=== PATIENT | female | born 1960 | race Caucasian/White ===

== ENCOUNTER 2017-02-04 12:22 | Inpatient (IN) | payer OTHER ==
[~2017-02-04] VITALS: Ht 160 cm; Wt 68.9 kg
[2017-02-04 12:24] VITALS: BP 162/96; PULSE 107; RESP 13; TEMP 98.5; O2SAT 97
[2017-02-04] MEDS ORDERED: ONDA8TAB7 PO (12:54)
[2017-02-04] MEDS ORDERED: ZOLP10TA3 PO (12:54)
[2017-02-04] MEDS ORDERED: NAPR500T2 PO (12:54)
[2017-02-04] MEDS ORDERED: LISI2.5T3 PO (12:54)
[2017-02-04] MEDS ORDERED: OMEP20TA93 PO (12:54)
[2017-02-04] MEDS ORDERED: HYDR-3583 PO (12:54)
[2017-02-04] MEDS ORDERED: ALPR2TAB3 PO (12:54)
[2017-02-04] MEDS ORDERED: VITA1000 PO (12:54)
[2017-02-04] MEDS ORDERED: ATOR20TA15 PO (12:54)
[2017-02-04] MEDS ORDERED: BACL10TA PO (12:54)
[2017-02-04] MEDS ORDERED: VIIB40TA PO (12:54)
[2017-02-04] MEDS ORDERED: METF500T PO (12:55)
[2017-02-04] MEDS ORDERED: CALC1TAB87 PO (12:55)
--- NOTE | 2017-02-04 12:56 | PD ---
HPI Chief Complaint: Psychiatric Symptoms Time Seen by Provider: 12:28 Travel History International Travel<30 days: No Contact w/Intl Traveler<30days: No Traveled to known affect area: No History of Present Illness HPI The patient is a 56-year-old female who presents to the emergency department for psychiatric evaluation. The patient was evaluated by her psychiatrist earlier today, Dr. Pozo, was sent to the emergency department for evaluation by psychiatry for increasing psychiatric symptoms. The patient has a history of depression, PTSD, panic attacks, borderline personality disorder. The patient states her cousin has been living with her for the last year, she is tried to evict her cousin from the house, however, cousin did pay a small amount and the police cannot force the cousin to leave. The patient denies any alcohol or illicit drug use. The patient was on Paxil for multiple years, however, was recently changed to Vybrid. The patient did have thoughts of suicide last night, stated she wished she was closer to her who . She has had multiple attempts at suicide at age is 16, but no recent attempts at suicide. She denies any actual suicide plan or ideation. Symptoms are moderate, exacerbated by home circumstances and chronic stress as well as chronic low back pain. There are no current alleviating factors. PFSH Past Medical History Diabetes: Yes Patient Takes Glucophage: Yes Psychiatric: Yes Past Surgical History Abdominal Surgery: Yes (GALLBLADDER REMOVAL ) Other Surgery: Yes (cyst removed ) Social History Alcohol Use: No Tobacco Use: Yes Substance Use: No Allergies-Medications (Allergen,Severity, Reaction): Coded Allergies: epinephrine (Verified Allergy, Severe, 02/04/17) PER PT JOINTS STIFFEN penicillin G (Verified Allergy, Severe, 02/04/17) PT WAS TOLD A CHILD SHE COULD IF SHE TAKES PENICILLIN phenazopyridine (Verified Allergy, Severe, HALLUCINATIONS , 02/04/17) Reported Meds & Prescriptions Reported Meds & Active Scripts Active Reported Calcium 600 with Vitamin D (Calcium Carbonate-Cholecalciferol) 600-400 mg-Unit Tab 1 Tab PO DAILY Metformin (Metformin HCl) 500 Mg Tab 500 Mg PO BIDPC Ondansetron (Ondansetron HCl) 8 Mg Tab 4 Mg PO DIRECTED Hydrocodone-Acetaminophen 10-325 mg Tab 1 Tab PO Q8HR PRN Vitamin D-1000 (Cholecalciferol) 1,000 Unit Tab 5,000 Units PO DAILY Omeprazole 20 Mg Tab 20 Mg PO DAILY Zolpidem (Zolpidem Tartrate) 10 Mg Tab 10 Mg PO HS PRN Baclofen 10 Mg Tab 10 Mg PO DAILY Viibryd (Vilazodone) 40 Mg Tab 40 Mg PO DAILY Atorvastatin (Atorvastatin Calcium) 20 Mg Tab 20 Mg PO HS Lisinopril 2.5 Mg Tab 2.5 Mg PO DAILY Naproxen 500 Mg Tab 500 Mg PO BID Alprazolam 2 Mg Tab 1 Mg PO TID Review of Systems Except as stated in HPI: all other systems reviewed are Neg General / Constitutional: No: Fever Cardiovascular: No: Chest Pain or Discomfort Respiratory: No: Shortness of Breath Gastrointestinal: No: Nausea, Vomiting, Abdominal Pain Genitourinary: No: Dysuria Musculoskeletal: No: Weakness Psychiatric: Positive: Anxiety, Depression, Suicidal Ideations (stated she had a fall last night that she wished she was closer to her who is ), No : Substance Abuse, Homicidal Ideation Physical Exam Narrative GENERAL: Awake, alert, tearful 56 year-old female who appears her stated age and is in no acute respiratory distress. SKIN: Focused skin assessment warm/dry. HEAD: Atraumatic. Normocephalic. EYES: Pupils equal and round. Bilateral injection from crying. ENT: No nasal bleeding or discharge. Mucous membranes pink and moist. NECK: Trachea midline. No JVD. CARDIOVASCULAR: Regular rate and rhythm. No murmur appreciated. RESPIRATORY: No accessory muscle use. Clear to auscultation. Breath sounds equal bilaterally. GASTROINTESTINAL: Abdomen soft, non-tender, nondistended. No rebound tenderness. MUSCULOSKELETAL: No obvious deformities. No clubbing. No cyanosis. No edema. NEUROLOGICAL: Awake and alert. No obvious cranial nerve deficits. Motor grossly within normal limits. Normal speech. Nonfocal. PSYCHIATRIC: Slightly anxious, tearful. Data Data Last Documented VS Vital Signs Date Time Temp Pulse Resp B/P (MAP) Pulse Ox O2 Delivery O2 Flow Rate FiO2 02/04/17 12:24 98.5 107 13 162/96 (118) 97 Orders Orders Complete Blood Count With Diff (02/04/17 12:45) Comprehensive Metabolic Panel (02/04/17 12:45) Thyroid Stimulating Hormone (02/04/17 12:45) Psych Screen (02/04/17 12:45) Drug Screen, Random Urine (02/04/17 12:45) Diet Diabetic (02/04/17 Dinner) Nicotine 21 Mg Patch.24 Hr (Habitrol 21 (02/04/17 16:30) Lorazepam (Ativan) (02/04/17 16:30) Naproxen (Naprosyn) (02/04/17 16:30) Labs Laboratory Tests Test 02/04/17 13:02 02/04/17 14:11 White Blood Count 9.8 TH/MM3 Red Blood Count 4.22 MIL/MM3 Hemoglobin 13.2 GM/DL Hematocrit 38.3 % Mean Corpuscular Volume 90.6 FL Mean Corpuscular Hemoglobin 31.4 PG Mean Corpuscular Hemoglobin Concent 34.6 % Red Cell Distribution Width 14.2 % Platelet Count 288 TH/MM3 Mean Platelet Volume 7.4 FL Neutrophils (%) (Auto) 58.7 % Lymphocytes (%) (Auto) 30.0 % Monocytes (%) (Auto) 6.3 % Eosinophils (%) (Auto) 4.5 % Basophils (%) (Auto) 0.5 % Neutrophils # (Auto) 5.8 TH/MM3 Lymphocytes # (Auto) 2.9 TH/MM3 Monocytes # (Auto) 0.6 TH/MM3 Eosinophils # (Auto) 0.4 TH/MM3 Basophils # (Auto) 0.0 TH/MM3 CBC Comment DIFF FINAL Differential Comment Blood Urea Nitrogen 10 MG/DL Creatinine 0.76 MG/DL Random Glucose 95 MG/DL Total Protein 7.4 GM/DL Albumin 4.2 GM/DL Calcium Level 9.3 MG/DL Alkaline Phosphatase 66 U/L Aspartate Amino Transf (AST/SGOT) 26 U/L Alanine Aminotransferase (ALT/SGPT) 34 U/L Total Bilirubin 0.3 MG/DL Sodium Level 142 MEQ/L Potassium Level 4.1 MEQ/L Chloride Level 105 MEQ/L Carbon Dioxide Level 32.0 MEQ/L Anion Gap 5 MEQ/L Estimat Glomerular Filtration Rate 79 ML/MIN Thyroid Stimulating Hormone 3rd Gen 1.780 uIU/ML Urine Opiates Screen NEG Urine Barbiturates Screen NEG Urine Amphetamines Screen NEG Urine Benzodiazepines Screen POS Urine Cocaine Screen NEG Urine Cannabinoids Screen NEG MDM Medical Decision Making Medical Screen Exam Complete: Yes Emergency Medical Condition: Yes Medical Record Reviewed: Yes Interpretation(s) Laboratory Tests Test 02/04/17 13:02 02/04/17 14:11 White Blood Count 9.8 TH/MM3 Red Blood Count 4.22 MIL/MM3 Hemoglobin 13.2 GM/DL Hematocrit 38.3 % Mean Corpuscular Volume 90.6 FL Mean Corpuscular Hemoglobin 31.4 PG Mean Corpuscular Hemoglobin Concent 34.6 % Red Cell Distribution Width 14.2 % Platelet Count 288 TH/MM3 Mean Platelet Volume 7.4 FL Neutrophils (%) (Auto) 58.7 % Lymphocytes (%) (Auto) 30.0 % Monocytes (%) (Auto) 6.3 % Eosinophils (%) (Auto) 4.5 % Basophils (%) (Auto) 0.5 % Neutrophils # (Auto) 5.8 TH/MM3 Lymphocytes # (Auto) 2.9 TH/MM3 Monocytes # (Auto) 0.6 TH/MM3 Eosinophils # (Auto) 0.4 TH/MM3 Basophils # (Auto) 0.0 TH/MM3 CBC Comment DIFF FINAL Differential Comment Blood Urea Nitrogen 10 MG/DL Creatinine 0.76 MG/DL Random Glucose 95 MG/DL Total Protein 7.4 GM/DL Albumin 4.2 GM/DL Calcium Level 9.3 MG/DL Alkaline Phosphatase 66 U/L Aspartate Amino Transf (AST/SGOT) 26 U/L Alanine Aminotransferase (ALT/SGPT) 34 U/L Total Bilirubin 0.3 MG/DL Sodium Level 142 MEQ/L Potassium Level 4.1 MEQ/L Chloride Level 105 MEQ/L Carbon Dioxide Level 32.0 MEQ/L Anion Gap 5 MEQ/L Estimat Glomerular Filtration Rate 79 ML/MIN Thyroid Stimulating Hormone 3rd Gen 1.780 uIU/ML Differential Diagnosis Differential diagnosis includes PTSD, depressive disorder, major depression, bipolar affective disorder, panic attack, suicidal ideation. Narrative Course Labs are drawn and sent. Psychiatric evaluation was ordered. Labs are unremarkable. TSH is within normal limits. The patient is medically cleared to be evaluated by psychiatry. The patient has been evaluated by psychiatry will be admitted to the psychiatric floor. Diagnosis Primary Impression: Depressive disorder Condition: Stable Breezy Arvizu MD Feb 04, 2017 12:56
[2017-02-04 13:17] LABS: AUTOMATED NEUTROPHIL # 5.8 TH/MM3 (1.8-7.7); BASOPHIL % 0.5 % (0.0-2.0); EOSINOPHIL # 0.4 TH/MM3 (0-0.4); EOSINOPHIL % 4.5 % (0.0-4.0); HEMATOCRIT 38.3 % (35.0-46.0); HEMO FLAGS DIFF FINAL; LYMPHOCYTE # 2.9 TH/MM3 (1.0-4.8); MEAN CELL VOLUME 90.6 FL (80.0-100.0); MEAN CORPUSCULAR HEMOGLOBIN 31.4 PG (27.0-34.0); MEAN CORPUSCULAR HGB CONC 34.6 % (32.0-36.0); MONO % 6.3 % (0.0-8.0); NEUT % 58.7 % (16.0-70.0); PLATELET COUNT 288 TH/MM3 (150-450); RED BLOOD COUNT 4.22 MIL/MM3 (4.00-5.30); RED CELL DISTRIBUTION WIDTH 14.2 % (11.6-17.2); WHITE BLOOD COUNT 9.8 TH/MM3 (4.0-11.0)
[2017-02-04 13:38] LABS: ANION GAP 5 MEQ/L (5-15); AST (GOT) 26 U/L (15-37); BLOOD UREA NITROGEN 10 MG/DL (7-18); CHLORIDE 105 MEQ/L (98-107); GLOMERULAR FILTRATION RATE 79 ML/MIN (>89); POTASSIUM 4.1 MEQ/L (3.5-5.1); SODIUM (NA) 142 MEQ/L (136-145)
[2017-02-04 13:48] LABS: ALKALINE PHOSPHATASE 66 U/L (45-117); ALT (GPT) 34 U/L (10-53); TOTAL BILIRUBIN ADULT 0.3 MG/DL (0.2-1.0)
[2017-02-04] MEDS ORDERED: NAPROXEN 500 MG TAB PO ONE (16:30)
[2017-02-04] MEDS ORDERED: LORazepam 1 MG TAB PO ONE (16:30)
[2017-02-04] MEDS ORDERED: NICOTINE 21 MG/24 HR PATCH T-DERMAL ONE (16:30)
[2017-02-04 17:53] VITALS: BP 132/61; PULSE 83; RESP 17; TEMP 98.3; O2SAT 95
[2017-02-04] MEDS ORDERED: hydrOXYzine HCL 50 MG TAB PO PRN (22:30)
[2017-02-04] MEDS ORDERED: FLUMAZENIL 0.5 MG/5 ML VIAL IV PUSH PRN (22:30)
[2017-02-04] MEDS ORDERED: MAGNESIUM HYDROXIDE SUSP 30 ML CUP PO PRN (22:30)
[2017-02-04] MEDS ORDERED: LORazepam 2 MG/ML VIAL IV PUSH PRN ×4 (22:30)
[2017-02-04] MEDS ORDERED: LORazepam 2 MG TAB PO PRN (22:30)
[2017-02-04] MEDS ORDERED: diphenhydrAMINE HCL 50 MG CAP PO PRN (22:30)
[2017-02-04] MEDS ORDERED: DEXTROSE 50% IN WATER 50 ML VIAL(D50) IV PUSH PRN (22:30)
[2017-02-04] MEDS ORDERED: ALUMINUM/MAGNESIUM/SIMETH 30 ML CUP PO PRN (22:30)
[2017-02-04] MEDS ORDERED: GLUCAGON 1 MG/ML VIAL OTHER PRN (22:30)
[2017-02-04] MEDS ORDERED: PILL SPLITTER OTHER PRN (22:30)
[2017-02-04] MEDS ORDERED: LORazepam 1 MG TAB PO PRN (22:30)
[2017-02-04 22:51] LABS: BACTERIA, URINE MANY /hpf; BLOOD, URINE NEG (NEG); COMMENT (UR) CULTURE INDICATED; CULTURE IF INDICATED CULTURE INDICATED; GLUCOSE,URINE NEG (NEG); KETONE, URINE NEG (NEG); NITRITE,URINE NEG (NEG); PH, URINE 6.5 (5.0-8.5); SQUAMOUS EPITHELIAL CELL URINE <1 /hpf (0-5); URINE COLOR LIGHT-YELLOW (YELLW/STRAW)
[2017-02-05 01:11] VITALS: BP 117/68; PULSE 81; RESP 17; TEMP 98.2; O2SAT 98
[2017-02-05 05:43] VITALS: BP 106/59; PULSE 84; RESP 18; TEMP 98.2; O2SAT 96
[2017-02-05] MEDS: INSULIN ASPART SUPPLEMENTAL SCALE SQ SCH ×2 (07:54→11:58)
[2017-02-05 07:57] LABS: ANION GAP 7 MEQ/L (5-15); BICARBONATE 30.2 MEQ/L (21.0-32.0); BLOOD UREA NITROGEN 11 MG/DL (7-18); CHLORIDE 104 MEQ/L (98-107); GLOMERULAR FILTRATION RATE 85 ML/MIN (>89); POTASSIUM 3.4 MEQ/L (3.5-5.1); SODIUM (NA) 141 MEQ/L (136-145)
[2017-02-05 08:01] LABS: HDL CHOLESTEROL 39.2 MG/DL (40.0-60.0); LDL CHOLESTEROL 41 MG/DL (0-99)
[2017-02-05] MEDS ORDERED: REMOVE OLD PATCH T-DERMAL SCH (09:00)
[2017-02-05] MEDS ORDERED: NAPROXEN 500 MG TAB PO SCH (09:00)
[2017-02-05] MEDS ORDERED: NICOTINE 21 MG/24 HR PATCH T-DERMAL SCH (09:00)
[2017-02-05] MEDS ORDERED: BACLOFEN 10 MG TAB PO SCH (09:00)
[2017-02-05] MEDS ORDERED: metFORMIN HCL 500 MG TAB PO SCH (09:00)
[2017-02-05] MEDS ORDERED: PANTOPRAZOLE SOD 20 MG DELAYED RELEASE TAB PO SCH (09:00)
[2017-02-05] MEDS ORDERED: LISINOPRIL 5 MG TAB PO SCH (09:00)
--- NOTE | 2017-02-05 11:59 | HHI.HP ---
Provisional Diagnosis Admission Date Feb 04, 2017 at 22:21 [place] I. Major depressive disorder, panic disorder, R/O benzodiazepines dependence, R/O malingering [place] II. Borderline personality disorder [place] III. Diabetes, ideas, chronic lower back pain Certification of Person's Competence To Provide Express and Informed Consent I have personally examined Justine Vivar , a person being served at [facility] on, Feb 05, 2017 11:40. Express and informed consent means consent voluntarily given in writing, by a competent person, after sufficient explanation and disclosure of the subject matter involved to enable the person to make a knowing and willful decision without any element of force, fraud, deceit, duress, or other form of constraint or coercion. This person is 18 years of age or older, is not now known to be incompetent to consent to treatment with a guardian advocate, and does not have a health care surrogate or proxy currently making medical treatment decisions. I have found this person to be one of the following: [X] Competent to provide express and informed consent, as defined above, for voluntary admission to this facility and is competent to provide express and informed consent for treatment. He/she has the consistent capacity to make well reasoned, willful, and knowing decisions concerning his or her medical or mental health treatment. The person fully and consistently understands the purpose of the admission for examination/placement and is fully capable of personally exercising all rights [place] Incompetent to provide express and informed consent to voluntary admission, and this is incompetent to provide express and informed consent to treatment. The person must be transferred to involuntary status and a petition for a guardian advocate filed with the Circuit Court. [] Refusing to provide express and informed consent to voluntary admission but is competent to provide express and informed consent for treatment. The person must be discharged or transferred to involuntary status. Form shall be completed within 24 hours of a person's arrival at the receiving facility and filed in the clinical record of each person: 1. Admitted on a voluntary basis 2. Permitted to provide express and informed consent to his/her own treatment 3. Allowed to transfer from involuntary to voluntary status 4. Prior to permitting a person to consent to his or her own treatment after having been previously found incompetent to consent to treatment. History of Present Illness Capacity: Has Capacity HPI The patient is a 56-year-old woman, domiciled in [facility] with her cousin, unemployed, supported by savings, with self-reported psychiatric history of depression, PTSD, borderline personality disorder, panic disorder, psychiatric hospitalizations, 6 previous suicidal attempts, outpatient care with , she is on Xanax 2 mg 3 times a day,Viibryd 20 mg, medical history of diabetes, lower back pain, however taken the reason, who presents to the emergency department for a voluntary psychiatric evaluation. The patient was evaluated by her psychiatrist yesterday, Dr. Pozo, was sent to the emergency department for evaluation by psychiatry for increasing psychiatric symptoms. In the ER just today" The patient states her cousin has been living with her for the last year, she is tried to evict her cousin from the house, however, cousin did pay a small amount and the police cannot force the cousin to leave. The patient denies any alcohol or illicit drug use. The patient was on Paxil for multiple years, however, was recently changed to Vybrid. The patient did have thoughts of suicide last night, stated she wished she was closer to her who . She has had multiple attempts at suicide at age is 16, but no recent attempts at suicide. She denies any actual suicide plan or ideation. Symptoms are moderate, exacerbated by home circumstances and chronic stress as well as chronic low back pain. There are no current alleviating factors. Today on psychiatric evaluation patient is irritable, demanding to be medicated with medication for anxiety. During the evaluation the patient has all the time her eyes closed. I have reviewed documentation and also discussed the case with , nurse in charge, who reports that the patient has been demanding and kind of difficulty in the floor. The patient says that she came here because yesterday she had a disagreement with her outpatient psychiatrist who increased her Viibryd to 40 mg for symptoms of depression and she disagrees with this. She says that she would like to be readjusted in psychotropics and then discharged back home. The patient denies suicidal ideation, she denies visual and auditory hallucinations. She says that she has been experiencing mood swings, severe panic attacks. When I explained to the patient that in the psychiatric unit most probably will not be prescribing Xanax until we can get in touch with Dr. Pozo for collateral information and the medication for pain would be prescribed as needed and trying to avoid narcotics on that she is seen by medicine, the patient became very upset and requested to be discharged. She says that she has been having a lot of pain and she needs to be in her regular pain medication. Patient is oriented 3, no attention deficit, no fluctuation of consciousness present. The patient denies the use of illicit drugs and alcohol. Review of Systems Endocrine: DENIES: Abnorml menstrual pattern, Heat/cold intolerance, Polydipsia , Polyuria, Polyphagia Ears, nose, mouth, throat: DENIES: Tinnitus, Hearing loss, Vertigo, Nasal discharge, Oral lesions, Throat pain, Hoarseness, Ear Pain, Running Nose, Epistaxis, Sinus Pain, Toothache, Odynophagia Respiratory: DENIES: Apneas, Cough, Snoring, Wheezing, Hemoptysis, Sputum production, Shortness of breath Cardiovascular: DENIES: Chest pain, Palpitations, Syncope, Dyspnea on Exertion , PND, Lower Extremity Edema, Orthopnea, Claudication Gastrointestinal: DENIES: Abdominal pain, Black stools, Bloody stools, Constipation, Diarrhea, Nausea, Vomiting, Difficulty Swallowing, Anorexia Musculoskeletal: COMPLAINS OF: Back pain Integumentary: DENIES: Abnormal pigmentation, Pruritus, Rash, Nail changes, Breast masses, Breast skin changes, Nipple discharge Immunologic/allergic: DENIES: Eczema, Urticaria Neurologic: DENIES: Abnormal gait, Headache, Localized weakness, Paresthesias, Seizures, Speech Problems, Tremor, Poor Balance Psychiatric: COMPLAINS OF: Anxiety, DENIES: Confusion, Mood changes, Depression , Hallucinations, Agitation, Suicidal Ideation, Homicidal Ideation, Delusions Substance Abuse History Drugs/Alcohol past 12 months Patient denies the use of alcohol and illicit drugs Past Family Social History Coded Allergies: epinephrine (Verified Allergy, Severe, 02/04/17) PER PT JOINTS STIFFEN penicillin G (Verified Allergy, Severe, 02/04/17) PT WAS TOLD A CHILD SHE COULD IF SHE TAKES PENICILLIN phenazopyridine (Verified Allergy, Severe, HALLUCINATIONS , 02/04/17) Reported Medications Calcium Carbonate-Cholecalciferol (Calcium 600 with Vitamin D) 600-400 mg-Unit Tab, 1 TAB PO DAILY for Calcium Supplement, TAB 0 Refills 02/04/17 Metformin (Metformin) 500 Mg Tab, 500 MG PO BIDPC for Blood Sugar Management, TAB 0 Refills 02/04/17 Ondansetron (Ondansetron) 8 Mg Tab, 4 MG PO DIRECTED for Nausea/Vomiting, TAB 0 Refills 02/04/17 Hydrocodone-Acetaminophen (Hydrocodone-Acetaminophen) 10-325 mg Tab, 1 TAB PO Q8HR Y for PAIN, TAB 0 Refills 02/04/17 Cholecalciferol (Vitamin D-1000) 1,000 Unit Tab, 5000 UNITS PO DAILY for Nutritional Supplement, #1 BOTTLE 0 Refills 02/04/17 Omeprazole (Omeprazole) 20 Mg Tab, 20 MG PO DAILY, TAB 0 Refills 02/04/17 Zolpidem (Zolpidem) 10 Mg Tab, 10 MG PO HS Y for INSOMNIA, TAB 0 Refills 02/04/17 Baclofen (Baclofen) 10 Mg Tab, 10 MG PO DAILY for Muscle Spasm, TAB 0 Refills 02/04/17 Vilazodone (Viibryd) 40 Mg Tab, 40 MG PO DAILY for Control Depression, TAB 0 Refills 02/04/17 Atorvastatin (Atorvastatin) 20 Mg Tab, 20 MG PO HS for Cholesterol Management, TAB 0 Refills 02/04/17 Lisinopril (Lisinopril) 2.5 Mg Tab, 2.5 MG PO DAILY, TAB 0 Refills 02/04/17 Naproxen (Naproxen) 500 Mg Tab, 500 MG PO BID, TAB 0 Refills 02/04/17 Alprazolam (Alprazolam) 2 Mg Tab, 1 MG PO TID, TAB 02/04/17 Current Medications Medications (Trade) Dose Ordered Sig/Zay Route Start Time Stop Time Status Last Admin (Lipitor) 20 mg HS PO 02/05/17 21:00 (Lioresal) 10 mg DAILY PO 02/05/17 09:00 (Glucophage) 500 mg BIDPC PO 02/05/17 09:00 02/05/17 09:13 (Naprosyn) 500 mg BID PO 02/05/17 09:00 (Prinivil) 2.5 mg DAILY PO 02/05/17 09:00 02/05/17 09:14 (Protonix) 20 mg DAILY PO 02/05/17 09:00 02/05/17 09:13 (D50w (Vial) Inj) 50 ml UNSCH PRN IV PUSH 02/04/17 22:30 (Glucagon Inj) 1 mg UNSCH PRN OTHER 02/04/17 22:30 (NovoLOG SUPPLEMENTAL SCALE) 1 ACHS SLIDING SCALE SQ 02/05/17 08:00 (Benadryl) 50 mg HS PRN PO 02/04/17 22:30 02/04/17 23:54 (Milk Of Magnesia Liq) 30 ml DAILY PRN PO 02/04/17 22:30 (Mag-Al Plus Susp Liq) 30 ml Q6H PRN PO 02/04/17 22:30 (Habitrol 21 Mg Patch.24 Hr) 1 patch DAILY T-DERMAL 02/05/17 09:00 02/05/17 09:12 (Atarax) 50 mg Q6H PRN PO 02/04/17 22:30 02/05/17 09:13 (Romazicon Inj) 0.2 mg Q1M PRN IV PUSH 02/04/17 22:30 (Ativan) 1 mg Q4H PRN PO 02/04/17 22:30 02/04/17 23:55 (Ativan Inj) 1 mg Q4H PRN IV PUSH 02/04/17 22:30 (Ativan) 2 mg Q2H PRN PO 02/04/17 22:30 (Ativan Inj) 2 mg Q2H PRN IV PUSH 02/04/17 22:30 (Ativan Inj) 2 mg Q1H PRN IV PUSH 02/04/17 22:30 (Ativan Inj) 2 mg Q15M PRN IV PUSH 02/04/17 22:30 Miscellaneous Information 1 DAILY T-DERMAL 02/05/17 09:00 02/05/17 09:00 (Pill Splitter) 1 ea UNSCH PRN OTHER 02/04/17 22:30 Family Psych History Patient denies family psychiatric history Social History Patient was born and raised in [place], she is in [place] with a cousin, she is unemployed, supported by [employer], she has 2 kids, her highest level of education is 11th grade Physical Exam Vital Signs Vital Signs Date Time Temp Pulse Resp B/P (MAP) Pulse Ox O2 Delivery O2 Flow Rate FiO2 02/05/17 05:43 98.2 84 18 106/59 (75) 96 Lab Results Test 02/04/17 13:02 02/04/17 14:11 02/05/17 06:50 White Blood Count 9.8 TH/MM3 Red Blood Count 4.22 MIL/MM3 Hemoglobin 13.2 GM/DL Hematocrit 38.3 % Mean Corpuscular Volume 90.6 FL Mean Corpuscular Hemoglobin 31.4 PG Mean Corpuscular Hemoglobin Concent 34.6 % Red Cell Distribution Width 14.2 % Platelet Count 288 TH/MM3 Mean Platelet Volume 7.4 FL Neutrophils (%) (Auto) 58.7 % Lymphocytes (%) (Auto) 30.0 % Monocytes (%) (Auto) 6.3 % Eosinophils (%) (Auto) 4.5 % Basophils (%) (Auto) 0.5 % Neutrophils # (Auto) 5.8 TH/MM3 Lymphocytes # (Auto) 2.9 TH/MM3 Monocytes # (Auto) 0.6 TH/MM3 Eosinophils # (Auto) 0.4 TH/MM3 Basophils # (Auto) 0.0 TH/MM3 CBC Comment DIFF FINAL Differential Comment Blood Urea Nitrogen 10 MG/DL 11 MG/DL Creatinine 0.76 MG/DL 0.71 MG/DL Random Glucose 95 MG/DL 76 MG/DL Total Protein 7.4 GM/DL Albumin 4.2 GM/DL Calcium Level 9.3 MG/DL 9.0 MG/DL Alkaline Phosphatase 66 U/L Aspartate Amino Transf (AST/SGOT) 26 U/L Alanine Aminotransferase (ALT/SGPT) 34 U/L Total Bilirubin 0.3 MG/DL Sodium Level 142 MEQ/L 141 MEQ/L Potassium Level 4.1 MEQ/L 3.4 MEQ/L Chloride Level 105 MEQ/L 104 MEQ/L Carbon Dioxide Level 32.0 MEQ/L 30.2 MEQ/L Anion Gap 5 MEQ/L 7 MEQ/L Estimat Glomerular Filtration Rate 79 ML/MIN 85 ML/MIN Thyroid Stimulating Hormone 3rd Gen 1.780 uIU/ML Ethyl Alcohol Level 3 MG/DL Urine Color LIGHT-YELLOW Urine Turbidity CLEAR Urine pH 6.5 Urine Specific [place] 1.005 Urine Protein NEG mg/dL Urine Glucose (UA) NEG mg/dL Urine Ketones NEG mg/dL Urine Occult Blood NEG Urine Nitrite NEG Urine Bilirubin NEG Urine Urobilinogen LESS THAN 2.0 MG/DL Urine Leukocyte Esterase TRACE Urine RBC 1 /hpf Urine WBC 1 /hpf Urine Squamous Epithelial Cells <1 /hpf Urine Bacteria MANY /hpf Microscopic Urinalysis Comment CULTURE INDICATED Urine Opiates Screen NEG Urine Barbiturates Screen NEG Urine Amphetamines Screen NEG Urine Benzodiazepines Screen POS Urine Cocaine Screen NEG Urine Cannabinoids Screen NEG Triglycerides Level 62 MG/DL Cholesterol Level 93 MG/DL LDL Cholesterol 41 MG/DL HDL Cholesterol 39.2 MG/DL Cholesterol/HDL Ratio 2.37 RATIO Date/Time Source Procedure Growth Status 02/04/17 14:11 Urine Clean Catch Urine Culture Pending Received Mental Status Examination Appearance: Appropriate Consciousness: Alert Orientation: x4 Motor Activity: Normal gait Speech: Unremarkable Language: Adequate Fund of Knowledge: Adequate Attention and Concentration: Adequate Memory: Unremarkable Mood: Angry Affect: Irritable Thought Process & Associations: Intact Thought Content: Appropriate Hallucination Type: None Delusion Type: None Suicidal Ideation: No Suicidal Plan: No Suicidal Intention: No Homicidal Ideation: No Homicidal Plan: No Homicidal Intention: No Insight: Adequate Judgment: Adequate Assessment & Plan Problem List: (1) Borderline personality disorder ICD Codes: F60.3 - Borderline personality disorder Assessment & Plan: On psychiatric evaluation today the patient does not have any significant, concerning or acute neuropsychiatric symptoms that require inpatient level of care. Patient came to the hospital voluntarily for medication adjustment due to increased level of depression and anxiety. However , when I explained to the patient that we will start treating her with low doses of medication, and was substituted Xanax with another medication for anxiety until in the collateral information from her primary psychiatrist, patient immediately stated that she wanted to be discharged and her problem is more a pain problem than a psychiatric problem. The patient denies suicidal and homicidal ideation, she denies visual and auditory hallucinations. During her stay in the psychiatric unit patient has been described as difficult to handle, with drug seeking and manipulative behavior. I have recommended to the patient to continue her outpatient care and discuss medication changes with her outpatient psychiatrist, she expressed agreement and understanding with this. She will be discharged from the unit. Psychoeducation and brief supportive psychotherapy provided. I am not prescribing any psychotropics at this moment. Assessment & Plan Estimated LOS: Rafael Cook MD Feb 05, 2017 11:59
[2017-02-05] MEDS ORDERED: ATORVASTATIN 20 MG TAB PO SCH (21:00)
[2017-02-06 10:30] LABS: HEMOGLOBIN A1a 1.2 %; HEMOGLOBIN A1b 0.8 %; HEMOGLOBIN LA1C 1.9 %; HEMOGLOBIN P3 3.6 %
== END 2017-02-05 14:00 | disposition home or self-care (01) | DRG 883 ==
LOC: NEPD 12:22 → NEDA 22:21 → H260 02-05 00:14
PROVIDERS: ADMIT Psychiatry & Neurology Psychiatry; ATTEND Psychiatry & Neurology Psychiatry
DX: F60.3 Borderline personality disorder (principal); R45.851 Suicidal ideations; F32.9 Major depressive disorder, single episode, unspecified; F43.10 Post-traumatic stress disorder, unspecified; M54.5 Low back pain; E11.9 Type 2 diabetes mellitus without complications; F41.0 Panic disorder [episodic paroxysmal anxiety]; G89.29 Other chronic pain; Z72.0 Tobacco use; Z76.5 Malingerer [conscious simulation]
CPT/HCPCS: 80048; 80053; 80061; 80307; 81001; 82948; 83036; 84443; 85025; 87086; Q0163